=== PATIENT | female | born 1995 | race African-American/Black ===

== ENCOUNTER 2016-10-09 11:53 | Inpatient (IN) | payer BC ==
[~2016-10-09] VITALS: Ht 175.3 cm; Wt 54.9 kg
--- NOTE | 2016-10-09 12:04 | NUR ---
PT LOURA FROM WORK TO ER BED 10 C/O LOWER ABDOMINAL PAIN W/ N/V X TODAY. PT STATES ALSO STARTED HAVING DIARRHEA WHE SHE WENT TO THE BATHROOM TO URINATE DIRECTOR UTILIZATION MANAGEMENT. GOWNED AND PLACED ON MONITOR. 11/13 PAIN. AWAITING MD BROUSSARD.
--- NOTE | 2016-10-09 12:14 | NUR ---
DR BUTCHER AT BEDSIDE FOR EVAL.
[2016-10-09 12:28] LABS: APPEARANCE,URINE Hazy (CLEAR); BILIRUBIN,URINE MODERATE (NEGATIVE); BLOOD, URINE Negative Ery/uL (NEGATIVE); COLOR,URINE Dark Yellow (YELLOW); KETONES,URINE 40 (NEGATIVE); LEUKOCYTE ESTERASE ,URINE Negative (NEGATIVE); NITRITE, URINE Positive (NEGATIVE); PROTEIN,URINE 100 mg/dl (NEGATIVE); UGLUCOSE 100 MG/DL mg/dL (NEGATIVE)
--- NOTE | 2016-10-09 12:28 | NUR ---
IV LINE STARTED. BLOOD DRAWN AND SENT TO LAB.
[2016-10-09 12:29] LABS: PREGNANCY TEST URINE QUAL NEGATIVE (NEGATIVE)
[2016-10-09] MEDS ORDERED: KETOROLAC TROMETHAMINE 15 MG/ML VIAL ONE (12:29)
[2016-10-09] MEDS ORDERED: IV SET PRIMARY 1 EA INFUS.SET MC ONE (12:29)
[2016-10-09] MEDS ORDERED: IV NS 0.9% 1,000 ML ONE (12:29)
[2016-10-09] MEDS ORDERED: ONDANSETRON HCL/PF 4 MG/2 ML VIAL ONE ×2 (12:29→15:38)
[2016-10-09] MEDS ORDERED: KETOROLAC TROMETHAMINE INJ 30 MG/ML VIAL IV ONE (12:30)
[2016-10-09] MEDS ORDERED: ONDANSETRON HCL/PF 4 MG/2 ML VIAL IVP ONE ×2 (12:30→15:00)
[2016-10-09] MEDS ORDERED: IV NS 0.9% 1,000 ML BAG IV ONE (12:30)
[2016-10-09 12:31] LABS: BASOPHILS # (AUTO) 0.8 /CMM (0.0-0.2); BASOPHILS % (AUTO) 3.5 % (0.0-2.0); EOSINOPHILS % (AUTO) 0.2 % (0.0-6.0); HEMATOCRIT 53 % (33-45); HEMOGLOBIN 17.7 g/dL (11.5-14.8); LYMPHOCYTES % (AUTO) 13.7 % (20.0-44.0); MEAN CORPUSCULAR HEMOGLOBIN 30 PG (26.0-33.0); MEAN CORPUSCULAR HGB CONC 33 g/dl (31.0-36.0); MEAN CORPUSCULAR VOLUME 91 fL (82-100); MONOCYTES # (AUTO) 1.1 /CMM (0.1-1.30); MONOCYTES % (AUTO) 4.9 % (2.0-12.0); NEUTROPHILS # (AUTO) 16.8 /CMM (1.8-8.9); NEUTROPHILS % (AUTO) 77.7 % (43.0-81.0); PLATELET COUNT (AUTO) 249 /CMM (150-450); RDW COEFFICIENT OF VARIATION 11.9 (11.5-15.0); RED BLOOD CELL COUNT(AUTO) 5.86 MIL/uL (4.0-5.2); WHITE BLOOD COUNT (AUTO) 21.6 K/uL (4.3-11.0)
[2016-10-09 12:35] LABS: BACTERIA,URINE None seen /HPF (None Seen); MUCUS,URINE Few /LPF (None Seen); RBC,URINE 0-3 /HPF (0-2); SQUAMOUS EPITHELIAL CELL,UR Few /HPF (None Seen); WBC,URINE 0-3 /HPF (0-3)
[2016-10-09 12:38] LABS: CALCIUM, SERUM 9.1 mg/dL (8.5-10.1); POTASSIUM 3.1 mmol/L (3.5-5.1)
[2016-10-09 12:44] LABS: ALBUMIN 4.6 g/dL (3.4-5.0); BILIRUBIN,DIRECT 0.2 mg/dL (0.0-0.2); TOTAL PROTEIN, SERUM 8.1 g/dL (6.4-8.2)
[2016-10-09] MEDS ORDERED: METRONIDAZOLE 500MG/ NS 100ML 100 ML IV ONE ×2 (14:30→14:35)
[2016-10-09] MEDS ORDERED: LEVOFLOXACIN 750 MG /D5W 150ML 150 ML IV ONE ×2 (14:30→14:34)
[2016-10-09] MEDS ORDERED: IV SET PRIMARY PUMP SET 1 EA INFUS.SET MC ONE ×2 (14:35→16:27)
[2016-10-09] MEDS ORDERED: MORPHINE SULFATE INJ 2 MG/ML DISP.SYRIN IV ONE (15:00)
[2016-10-09] MEDS ORDERED: ONDANSETRON HCL/PF 4 MG/2 ML VIAL IVP PRN (15:30)
[2016-10-09] MEDS ORDERED: MAG HYDROX/AL HYDROX/SIMETH 30 ML UDC PO PRN (15:30)
[2016-10-09] MEDS ORDERED: ACETAMINOPHEN 325 MG TABLET PO PRN (15:30)
[2016-10-09] MEDS ORDERED: MAGNESIUM HYDROXIDE 30 ML UDC PO PRN (15:30)
[2016-10-09] MEDS ORDERED: Z GUARD REMEDY 2 OZ OINT TP PRN (15:30)
[2016-10-09] MEDS ORDERED: HYDROCODONE/APAP 5/325MG 1 EACH TABLET PO PRN (15:30)
[2016-10-09] MEDS ORDERED: MORPHINE SULFATE INJ 4 MG/ML DISP.SYRIN ONE (15:38)
--- NOTE | 2016-10-09 15:53 | NUR ---
REPORT GIVEN TO ANGELA. PT AWAITING TRANSFER TO FLOOR.
[2016-10-09 16:05] VITALS: BP 105/53
--- NOTE | 2016-10-09 16:05 | NUR ---
MS SOFTWARE PROJECT MANAGER NOTES Admitted a 21 years old female who came in with abdominal pain, patient is verbally responsive and able to make needs known, Alert and oriented x 4. IV intact and patent with IVF infusing well. Dr. Mcconnell aware of the admission, admission orders on file. No complaint of pain or discomfort at this time. Kept patient clean and comfortable in bed, call light with in patient reach. Will continue to monitor accordingly.
[2016-10-09] MEDS ORDERED: SECONDARY IV SET 1 EA INFUS.SET MC ONE ×2 (16:27→19:56)
[2016-10-09] MEDS: IV NS 0.9% 1,000 ML IV PRN (16:35)
[2016-10-09] MEDS: MORPHINE SULFATE INJ 2 MG/ML DISP.SYRIN IV PRN (18:37)
--- NOTE | 2016-10-09 19:23 | NUR ---
ms rn closing notes All needs provided, attended, and anticipated. Kept patient clean and comfortable in bed, call light with in patient reach, endorsed to next shift RN to continue care.
[2016-10-09 20:00] VITALS: BP 103/48
--- NOTE | 2016-10-09 20:00 | NUR ---
RN NOTES PT. A/O X4 AWAKE,AMBULATORY, NO ACUTE DISTRESS NOTED , VITAL SIGNS STABLE , O2 SAT 99% ON ROOM AIR FAMILY MEMBERS ON BED SIDE NOTED, ALL NEEDS ANTICIPATED , PROVIDE SAFETY AND COMFORT , CALL LIGHT WITH IN REACH , WILL CONTINUE TO MONITOR
[2016-10-09] MEDS: METRONIDAZOLE 500MG/ NS 100ML 500 MG in PREMIX 1 EA IV SCH (20:25)
[2016-10-09] MEDS: ZOLPIDEM TARTRATE 5 MG TABLET PO PRN (22:22)
--- NOTE | 2016-10-09 22:23 | NUR ---
PT. C/O INSOMNIA AMBIEN 5 MG PO PRN GIVEN PER PT. REQUEST VITAL SIGNS STABLE WILL CONTINUE TO MONITOR .
--- NOTE | 2016-10-10 01:15 | NUR ---
NOTED POTASSIUM LEVEL 3.1, NOTIFIED DR. DOMINGUEZ, NEW ORDER OF POTASSIUM CHLORIDE 40 MEQ PO, ORDER NOTED AND CARRIED OUT.
[2016-10-10] MEDS ORDERED: POTASSIUM CHLORIDE 20 MEQ TAB.PRT.SR PO ONE ×2 (01:25→01:30)
[2016-10-10] MEDS: METRONIDAZOLE 500MG/ NS 100ML 500 MG in PREMIX 1 EA IV SCH ×3 (04:08→21:03)
[2016-10-10] MEDS: MORPHINE SULFATE INJ 2 MG/ML DISP.SYRIN IV PRN ×2 (06:32→15:31)
--- NOTE | 2016-10-10 06:35 | NUR ---
COMPLAINING OF EPIGASTRIC PAIN OF 8/10, GIVEN MORPHINE 2MG IVP
--- NOTE | 2016-10-10 06:46 | NUR ---
RN NOTES PT. A/O X4 NO ACUTE DISTRESS NOTED ,PT. IN STABLE CONDITION PT. SLEPT WELL DURING SHIFT ALL NEEDS ATTENDED AND ANTICIPATED , ALL MEDS GIVEN PRE MD ORDERS , WILL ENDORSE TO NEXT SHIFT FOR CONTINUITY OF CARE .
[2016-10-10] MEDS: IV NS 0.9% 1,000 ML IV PRN (07:06)
--- NOTE | 2016-10-10 07:15 | NUR ---
ms rn initial notes Received patient in bed, awake, head of bed elevated no SOB or distress noted. On room air and tolerated well. IV intact and patent with IVF infusing well. Alert and oriented x 4, verbally responsive and able to make needs known. Kept patient clean and comfortable in bed, call light with in patient reach, will continue to monitor accordingly.
[2016-10-10] MEDS: PANTOPRAZOLE 40 MG TABLET.DR PO SCH (07:34)
[2016-10-10 07:55] LABS: BASOPHILS % (AUTO) 0.3 % (0.0-2.0); EOSINOPHILS # (AUTO) 0.1 /CMM (0.0-0.7); EOSINOPHILS % (AUTO) 0.7 % (0.0-6.0); HEMATOCRIT 39 % (33-45); HEMOGLOBIN 13.5 g/dL (11.5-14.8); LYMPHOCYTES # (AUTO) 1.4 /CMM (0.8-4.8); LYMPHOCYTES % (AUTO) 18.4 % (20.0-44.0); MEAN CORPUSCULAR HEMOGLOBIN 31 PG (26.0-33.0); MEAN CORPUSCULAR HGB CONC 35 g/dl (31.0-36.0); MEAN CORPUSCULAR VOLUME 90 fL (82-100); MONOCYTES # (AUTO) 0.5 /CMM (0.1-1.30); MONOCYTES % (AUTO) 7.2 % (2.0-12.0); NEUTROPHILS # (AUTO) 5.4 /CMM (1.8-8.9); NEUTROPHILS % (AUTO) 73.4 % (43.0-81.0); PLATELET COUNT (AUTO) 202 /CMM (150-450); RDW COEFFICIENT OF VARIATION 12.5 (11.5-15.0); RED BLOOD CELL COUNT(AUTO) 4.32 MIL/uL (4.0-5.2); WHITE BLOOD COUNT (AUTO) 7.4 K/uL (4.3-11.0)
[2016-10-10 08:00] VITALS: BP 95/51
[2016-10-10 08:31] LABS: CALCIUM, SERUM 8.2 mg/dL (8.5-10.1); CREATININE 0.9 mg/dL (0.6-1.3); MAGNESIUM 1.6 mg/dL (1.8-2.4); PHOSPHORUS 3.5 mg/dL (2.5-4.9); POTASSIUM 3.8 mmol/L (3.5-5.1)
[2016-10-10] MEDS ORDERED: LEVOFLOXACIN 500 MG /D5W 100ML 500 MG/100 ML PIGGYBACK IV SCH (09:00)
[2016-10-10] MEDS ORDERED: SECONDARY IV SET 1 EA INFUS.SET MC ONE (10:13)
[2016-10-10] MEDS: Magnesium 1GM/D5W 100ML PREMIX 100 ML IV SCH ×2 (10:18→11:49)
[2016-10-10] MEDS: LEVOFLOXACIN 500 MG /D5W 100ML 500 MG in PREMIX 1 EA IV SCH (13:40)
[2016-10-10 16:00] VITALS: BP 123/69
--- NOTE | 2016-10-10 18:58 | NUR ---
ms rn closing notes All needs provided, attended, and anticipated. Kept patient clean and comfortable in bed, call light with in patient reach, will continue to monitor accordingly. Endorsed to next shift RN to continue care.
[2016-10-10 20:00] VITALS: BP 115/71
--- NOTE | 2016-10-10 20:00 | NUR ---
PATIENT IS ALERT AND ORIENTED X4, CALM, NO SOB, NO RESPIRATORY DISTRESS, TOLERATING ROOM AIR, 02 SAT 98%, DENIES ANY ABDOMINAL PAIN AT THIS TIME, RECEIVED PAIN MEDICATION DURING AM SHIFT, TOLERATING FULL LIQUID DIET. LEFT AC PERIPHERAL LINE IS PATENT AND INFUSING WELL. NEEDS ATTENDED, CALL LIGHT WITHIN REACH.
[2016-10-10] MEDS: ZOLPIDEM TARTRATE 5 MG TABLET PO PRN (21:11)
--- NOTE | 2016-10-10 21:11 | NUR ---
GIVEN AMBIEN 5 MG PO FOR SLEEP. V/S ARE STABLE, WILL CONTINUE TO MONITOR.
[2016-10-10 22:00] VITALS: BP 115/71
[2016-10-11] MEDS: IV NS 0.9% 1,000 ML IV PRN (03:38)
[2016-10-11] MEDS: METRONIDAZOLE 500MG/ NS 100ML 500 MG in PREMIX 1 EA IV SCH ×2 (05:12→12:50)
--- NOTE | 2016-10-11 06:57 | NUR ---
PATIENT IS ALERT AND AWAKE, NO DISTRESS, SLEPT FOR 7 HOURS, NO ADVERSE CHANGE OF CONDITION DURING SHIFT, ALL DUE MEDICATIONS GIVEN, CALL LIGHT WITHIN REACH.
--- NOTE | 2016-10-11 07:50 | NUR ---
MS RN OPENING NOTES RECEIVED PT. FROM NIGHTSHIFT NURSE IN STABLE CONDITION. NO SOB OR SIGNS OF DISTRESS NOTED. BREATHING IS EVEN AND UNLABORED. DENIES ANY ABDOMINAL PAIN AT THIS TIME. IV PRESENT ON LEFT AC 20G PATENT AND INTACT INFUSING NS @ 75ML/HR. PT. TOLERATING INFUSION WELL. NO REDNESS OR SIGNS LUCIO INFILTRATION NOTED. BED IN LOW LOCKED POSITION, SIDE RAILS UP X2, CALL LIGHT WITHIN REACH. WILL CONTINUE TO MONITOR.
[2016-10-11 08:00] VITALS: BP 120/67
[2016-10-11] MEDS: PANTOPRAZOLE 40 MG TABLET.DR PO SCH (08:32)
[2016-10-11 08:34] LABS: BASOPHILS % (AUTO) 0.3 % (0.0-2.0); EOSINOPHILS % (AUTO) 0.3 % (0.0-6.0); HEMATOCRIT 40 % (33-45); LYMPHOCYTES # (AUTO) 1.2 /CMM (0.8-4.8); LYMPHOCYTES % (AUTO) 17.6 % (20.0-44.0); MEAN CORPUSCULAR HEMOGLOBIN 31 PG (26.0-33.0); MEAN CORPUSCULAR HGB CONC 35 g/dl (31.0-36.0); MEAN CORPUSCULAR VOLUME 90 fL (82-100); MONOCYTES # (AUTO) 0.4 /CMM (0.1-1.30); MONOCYTES % (AUTO) 6.2 % (2.0-12.0); NEUTROPHILS # (AUTO) 5.3 /CMM (1.8-8.9); NEUTROPHILS % (AUTO) 75.6 % (43.0-81.0); PLATELET COUNT (AUTO) 192 /CMM (150-450); RDW COEFFICIENT OF VARIATION 12.4 (11.5-15.0); RED BLOOD CELL COUNT(AUTO) 4.51 MIL/uL (4.0-5.2)
[2016-10-11 08:53] LABS: CALCIUM, SERUM 8.6 mg/dL (8.5-10.1); CREATININE 0.9 mg/dL (0.6-1.3); MAGNESIUM 1.8 mg/dL (1.8-2.4); POTASSIUM 3.6 mmol/L (3.5-5.1)
[2016-10-11] MEDS ORDERED: LEVO500T15 PO (09:59)
[2016-10-11] MEDS ORDERED: METR500T PO (09:59)
[2016-10-11] MEDS: LEVOFLOXACIN 500 MG /D5W 100ML 500 MG in PREMIX 1 EA IV SCH (11:08)
--- NOTE | 2016-10-11 14:38 | NUR ---
MS RN NOTES PT. WAS DISCHARGED FROM UNIT IN STABLE CONDITION. I ESCORTED HER DOWN TO THE PARKING STRUCTURE WHERE SHE SAFLEY LEFT VIA A PRIVATE VEHICLE ACCOMPANIED BUY HER GIRLFRIEND. ALL NEEDS WERE WELL MET AND ORDERS CARRIED OUT ACCORDINGLY
== END 2016-10-11 14:24 | disposition home or self-care (01) | DRG 641 ==
LOC: ER 11:55 → MED 15:16
PROVIDERS: ADMIT Internal Medicine; ATTEND Internal Medicine
DX: E86.0 Dehydration (principal); K92.2 Gastrointestinal hemorrhage, unspecified; K52.9 Noninfective gastroenteritis and colitis, unspecified; E87.6 Hypokalemia; E83.42 Hypomagnesemia; D72.829 Elevated white blood cell count, unspecified; R93.5 Abnormal findings on diagnostic imaging of other abdominal regions, including retroperitoneum
CPT/HCPCS: 36415; 80048-TC; 80076-TC; 81000-TC; 83605-TC; 83690-TC; 83735-TC; 84100-TC; 84703-TC; 85025-TC; 87040-TC; 87081-TC; A4216; A4606; J1885; J1956; J2270; J2405; J3475; J3490; J7030; Z7610

== ENCOUNTER 2016-11-14 18:14 | Emergency (ER) | payer BC ==
[~2016-11-14] VITALS: Ht 172.7 cm; Wt 55.8 kg
[~2016-11-14 18:14] MED LIST: LEVO500T15 PO; METR500T PO
--- NOTE | 2016-11-14 18:38 | NUR ---
PT BIB SELF C/O DIFFUSE ABD PAIN X1 MONTH, CONSTANT PAIN WITH INTERMITTENT NAUSEA. REPORTS PAIN WHILE HAVING BM. DENIES VOMITING OR DIARRHEA. PT WAS RECENTLY ADMITTED HERE FOR "COLITIS". RESP EVEN UNLABORED. SKIN WARM NONDIAPHORETIC. AMBULATORY WITH STEADY GAIT. DENIES URINARY SYMPTOMS. IN ER BED 07.
[2016-11-14 18:54] LABS: BASOPHILS # (AUTO) 0.2 /CMM (0.0-0.2); EOSINOPHILS # (AUTO) 0.1 /CMM (0.0-0.7); EOSINOPHILS % (AUTO) 0.8 % (0.0-6.0); HEMATOCRIT 41 % (33-45); HEMOGLOBIN 13.6 g/dL (11.5-14.8); LYMPHOCYTES # (AUTO) 1.7 /CMM (0.8-4.8); LYMPHOCYTES % (AUTO) 22.3 % (20.0-44.0); MEAN CORPUSCULAR HEMOGLOBIN 30 PG (26.0-33.0); MEAN CORPUSCULAR HGB CONC 33 g/dl (31.0-36.0); MEAN CORPUSCULAR VOLUME 90 fL (82-100); MONOCYTES # (AUTO) 0.7 /CMM (0.1-1.30); MONOCYTES % (AUTO) 8.7 % (2.0-12.0); NEUTROPHILS # (AUTO) 5.1 /CMM (1.8-8.9); NEUTROPHILS % (AUTO) 65.2 % (43.0-81.0); PLATELET COUNT (AUTO) 166 /CMM (150-450); RDW COEFFICIENT OF VARIATION 11.9 (11.5-15.0); RED BLOOD CELL COUNT(AUTO) 4.56 MIL/uL (4.0-5.2); WHITE BLOOD COUNT (AUTO) 7.8 K/uL (4.3-11.0)
[2016-11-14 19:07] LABS: CREATININE 0.9 mg/dL (0.6-1.3); POTASSIUM 3.4 mmol/L (3.5-5.1)
[2016-11-14 19:13] LABS: ALBUMIN 4.4 g/dL (3.4-5.0); BILIRUBIN,DIRECT 0.2 mg/dL (0.0-0.2); BILIRUBIN,TOTAL 1.5 mg/dL (0.2-1.0); TOTAL PROTEIN, SERUM 7.7 g/dL (6.4-8.2)
--- NOTE | 2016-11-14 19:13 | NUR ---
pt report recived from foster rn, pt in bed stating her whole stomach is still hurting, pt urine collected and sent to lab pt in gown on monitor, made aware will continue to monitor.
[2016-11-14 19:17] LABS: APPEARANCE,URINE Slightly Cloudy (CLEAR); BILIRUBIN,URINE Negative (NEGATIVE); BLOOD, URINE Large Ery/uL (NEGATIVE); COLOR,URINE Dark (YELLOW); KETONES,URINE Negative (NEGATIVE); LEUKOCYTE ESTERASE ,URINE Negative (NEGATIVE); NITRITE, URINE Negative (NEGATIVE); PROTEIN,URINE 100 mg/dl (NEGATIVE); UGLUCOSE Negative (NEGATIVE); UROBILINOGEN,URINE 0.2 EU/dL (0.2)
[2016-11-14 19:19] LABS: PREGNANCY TEST URINE QUAL NEGATIVE (NEGATIVE)
[2016-11-14 19:28] LABS: BACTERIA,URINE None seen /HPF (None Seen); RBC,URINE 21-50 /HPF (0-2); SQUAMOUS EPITHELIAL CELL,UR Few /HPF (None Seen); WBC,URINE 0-2 /HPF (0-3)
[2016-11-14] MEDS ORDERED: POTASSIUM CHLORIDE 20 MEQ TAB.PRT.SR PO ONE ×2 (19:28→19:30)
[2016-11-14 19:29] LABS: HYALINE CASTS, URINE Rare /LPF (None Seen); YEAST,URINE Rare /HPF (None Seen)
[2016-11-14] MEDS ORDERED: KETOROLAC TROMETHAMINE INJ 30 MG/ML VIAL IV ONE (19:30)
[2016-11-14] MEDS ORDERED: KETOROLAC TROMETHAMINE INJ 30 MG/ML VIAL ONE (19:31)
--- NOTE | 2016-11-14 19:58 | NUR ---
Patient discharged to home in stable condition. Written and verbal after care instructions given. Patient verbalizes understanding of instruction.IV removed. Catheter intact and site benign. Pressure and 4x4 applied to site. No bleeding noted.
[2016-11-14 19:59] VITALS: BP 118/74
== END 2016-11-14 20:00 | disposition home or self-care (01) ==
LOC: ER 18:16
DX: E87.6 Hypokalemia (principal); R10.84 Generalized abdominal pain
CPT/HCPCS: 36415; 80048; 80076; 81001; 83690; 84703; 85025; 96374; 99284; A4606; J1885; Z7610; 81000-TC

== ENCOUNTER 2018-02-05 12:42 | Emergency (ER) | payer BC ==
[~2018-02-05] VITALS: Ht 172.7 cm; Wt 56.7 kg
[~2018-02-05 12:42] MED LIST changes: -LEVO500T15 PO; +LEVO500T75 PO
[2018-02-05] MEDS ORDERED: ONDANSETRON HCL/PF 4 MG/2 ML VIAL IVP ONE (13:30)
[2018-02-05] MEDS ORDERED: KETOROLAC TROMETHAMINE INJ 30 MG/ML VIAL IV ONE (13:30)
[2018-02-05] MEDS ORDERED: IV NS 0.9% 1,000 ML BAG IV ONE (13:30)
[2018-02-05 13:41] LABS: BASOPHILS # (AUTO) 0.1 /CMM (0.0-0.2); BASOPHILS % (AUTO) 0.5 % (0.0-2.0); EOSINOPHILS % (AUTO) 0.4 % (0.0-6.0); HEMATOCRIT 45 % (33-45); HEMOGLOBIN 15.2 g/dL (11.5-14.8); LYMPHOCYTES # (AUTO) 1.3 /CMM (0.8-4.8); LYMPHOCYTES % (AUTO) 10.6 % (20.0-44.0); MEAN CORPUSCULAR HGB CONC 34 g/dl (31.0-36.0); MEAN CORPUSCULAR VOLUME 91 fL (82-100); MONOCYTES # (AUTO) 0.6 /CMM (0.1-1.30); NEUTROPHILS # (AUTO) 9.9 /CMM (1.8-8.9); NEUTROPHILS % (AUTO) 83.5 % (43.0-81.0); PLATELET COUNT (AUTO) 209 /CMM (150-450); RDW COEFFICIENT OF VARIATION 12.2 (11.5-15.0); RED BLOOD CELL COUNT(AUTO) 4.99 MIL/uL (4.0-5.2); WHITE BLOOD COUNT (AUTO) 11.9 K/uL (4.3-11.0)
[2018-02-05 13:50] LABS: APPEARANCE,URINE Clear (CLEAR); BILIRUBIN,URINE Negative (NEGATIVE); BLOOD, URINE Negative Ery/uL (NEGATIVE); COLOR,URINE Yellow (YELLOW); KETONES,URINE Negative (NEGATIVE); LEUKOCYTE ESTERASE ,URINE Negative (NEGATIVE); NITRITE, URINE Negative (NEGATIVE); PROTEIN,URINE Negative (NEGATIVE); UGLUCOSE Negative (NEGATIVE); UROBILINOGEN,URINE 0.2 EU/dL (0.2)
[2018-02-05 13:51] LABS: CALCIUM, SERUM 9.2 mg/dL (8.5-10.1); CREATININE 0.9 mg/dL (0.6-1.3)
[2018-02-05 13:57] LABS: ALBUMIN 4.4 g/dL (3.4-5.0); BILIRUBIN,DIRECT 0.2 mg/dL (0.0-0.2); BILIRUBIN,TOTAL 0.9 mg/dL (0.2-1.0); TOTAL PROTEIN, SERUM 7.8 g/dL (6.4-8.2)
[2018-02-05] MEDS ORDERED: KETOROLAC TROMETHAMINE INJ 30 MG/ML VIAL ONE (14:04)
[2018-02-05] MEDS ORDERED: ONDANSETRON HCL/PF 4 MG/2 ML VIAL ONE (14:04)
[2018-02-05] MEDS ORDERED: IV NS 0.9% 250 ML IV ONE (15:07)
[2018-02-05] MEDS ORDERED: IOHEXOL-300 100 ML VIAL IV ONE (15:07)
[2018-02-05 16:45] VITALS: BP 124/62
--- NOTE | 2018-02-05 16:48 | NUR ---
IV removed. Catheter intact and site benign. Pressure and 4x4 applied to site. No bleeding noted.Patient discharged to home in stable condition. Written and verbal after care instructions given. Patient verbalizes understanding of instruction.
== END 2018-02-05 16:54 | disposition home or self-care (01) ==
LOC: ER 12:47
DX: R10.84 Generalized abdominal pain (principal); R18.8 Other ascites; Z60.2 Problems related to living alone
CPT/HCPCS: 36415; 74177; 80048; 80076; 81001; 83690; 84703; 85025; 96374; 96375; 99285; A4606; J1885; J2405; J7030; J7050; Q9967; Z7610; 81000-TC